=== PATIENT | male | born 1950 | race Caucasian/White ===

== ENCOUNTER 2018-10-20 17:20 | Inpatient (IN) | payer OTHER ==
[~2018-10-20] VITALS: Ht 172.7 cm; Wt 132.0 kg
[2018-10-20 17:22] VITALS: BP 128/93
--- NOTE | 2018-10-20 17:28 | NUR ---
PT AMBULATES TO BED 4
[2018-10-20] MEDS ORDERED: FUROSEMIDE 40 MG/4 ML VIAL IVP ONE (17:40)
[2018-10-20] MEDS ORDERED: ASPIRIN 81 MG TAB.CHEW PO ONE (17:40)
[2018-10-20] MEDS ORDERED: NITROGLYCERIN 2% 1 GM PKT TP ONE (17:40)
--- NOTE | 2018-10-20 17:40 | NUR ---
67 yo m bib self w/ c/o bl leg edema, 3+ pitting x 5 days with sob upon exertion. Clear speech with short phrases. Abd is firm, round, and distended. Pt reports 2/10 bl leg pain. Pt denies any sob or cp. Pt is aaox4 to person, place, time, and situation. RR are even and labored and tachypneic. Skin is warm/dry/color apprioriate for ethnicity. er md apple made aware of pt status. Pt to cardaic, bp, pulse, and pulse ox monitoring. Pt positioned to comofort. All needs met at this time. Will continue to monitor.
[2018-10-20] MEDS ORDERED: DILTIAZEM 25 MG/5 ML VIAL IVP ONE (17:50)
--- NOTE | 2018-10-20 18:11 | NUR ---
XRAY AT BEDSIDE
[2018-10-20 18:12] LABS: BASOPHILS # (AUTO) 0.1 K/uL (0.00-0.22); BASOPHILS % (AUTO) 0.6 % (0.0-2.0); EOSINOPHILS # (AUTO) 0.3 K/uL (0-0.4); EOSINOPHILS % (AUTO) 3.2 % (0.0-4.0); HEMATOCRIT 36.7 % (36-52); HEMOGLOBIN 11.8 g/dL (12.0-18.0); LYMPHOCYTES # (AUTO) 2.3 K/uL (2.0-11.5); LYMPHOCYTES % (AUTO) 23.9 % (20.5-51.1); MEAN CORPUSCULAR HEMOGLOBIN 29 pg (27-31); MEAN CORPUSCULAR HGB CONC 32 g/dL (33-37); MEAN CORPUSCULAR VOLUME 89.6 fL (80-94); MONOCYTES # (AUTO) 0.8 K/uL (0.8-1.0); NEUTROPHILS # (AUTO) 6.2 K/uL (1.8-7.7); NEUTROPHILS % (AUTO) 64.3 % (42.2-75.2); PLATELET COUNT (AUTO) 223 K/uL (140-450); RED BLOOD CELL COUNT(AUTO) 4.09 MIL/uL (4.20-6.10); RED CELL DISTRIBUTION WIDTH 15.7 % (11.6-13.7); WHITE BLOOD COUNT (AUTO) 9.6 K/uL (4.8-10.8)
[2018-10-20] MEDS ORDERED: HYDR-5092 PO (18:16)
[2018-10-20] MEDS ORDERED: [UNRECOGNIZED DRUG - CODE] PO (18:16)
[2018-10-20] MEDS ORDERED: FURO-570 PO (18:16)
[2018-10-20] MEDS ORDERED: GABA300C PO (18:16)
[2018-10-20] MEDS ORDERED: LORA-476 PO (18:16)
[2018-10-20] MEDS ORDERED: AMLO10TA PO (18:16)
[2018-10-20] MEDS ORDERED: CYCL-654 PO (18:16)
[2018-10-20] MEDS ORDERED: WARF3TAB PO (18:16)
[2018-10-20] MEDS ORDERED: ZOLP5TAB1 PO (18:16)
[2018-10-20 19:05] LABS: ALBUMIN 3.5 g/dL (3.4-5.0); CARBON DIOXIDE 29.9 mmol/L (21-32); CREATININE 1.6 mg/dL (0.7-1.3); POTASSIUM 3.9 mmol/L (3.5-5.1); TOTAL BILIRUBIN 0.5 mg/dL (0.0-1.0)
--- NOTE | 2018-10-20 19:07 | NUR ---
Pt report given to Will GRACE. Transfer of care at this time.
[2018-10-20 19:14] LABS: PROTHROMBIN TIME 17.4 secs (10.8-13.4)
[2018-10-20] MEDS ORDERED: ONDANSETRON 4 MG/2 ML VIAL IM/IVP PRN (19:55)
[2018-10-20] MEDS ORDERED: ACETAMINOPHEN 325 MG TAB PO PRN (19:55)
[2018-10-20] MEDS ORDERED: DOCUSATE SODIUM 100 MG GELCAP PO PRN (19:55)
[2018-10-20 20:22] LABS: APPEARANCE,URINE CLEAR (CLEAR); BILIRUBIN,URINE NEGATIVE (NEGATIVE); BLOOD, URINE NEGATIVE (NEGATIVE); COLOR,URINE YELLOW (YELLOW); LEUKOCYTE ESTERASE ,URINE NEGATIVE (NEGATIVE); NITRITE, URINE NEGATIVE (NEGATIVE); PH,URINE 6.5 (5.0-9.0); UGLUCOSE NEGATIVE (NEGATIVE)
[2018-10-20 20:25] LABS: BARBITURATE, URINE NEG. ng/ml (NEG <=200); BENZODIAZEPINE, URINE NEG. ng/mL (NEG <=200); CANNABINOID, URINE NEG. ng/mL (NEG <=50); COCAINE, URINE NEG. ng/mL (NEG <=300); OPIATE, URINE NEG. ng/mL (NEG <=2000); PHENCYCLIDINE SCREEN,URINE NEG. ng/mL (NEG <=25)
[2018-10-20 20:38] LABS: CHOL/HDL RATIO 3.4 (1-4.5); MAGNESIUM 2.3 mg/dL (1.8-2.4); THYROID STIMULATING HORMONE 2.19 uIU/mL (0.34-3.74)
--- NOTE | 2018-10-20 20:40 | NUR ---
RECEIVED BEDSIDE REPORT FROM ASSISTANT SIGNAL MAINTAINER DANAE. PT IS A&OX4. ON NC 2L. NO S/S OF DISTRESS. IV ON R AC 20 G SALINE LOCK. PT HAS BILATERAL LOWER EXTREMITY PITTING EDEMA. PT IS CONTINENT. RECEIVED LASIX AT ER. SKIN IS INTACT. PT USES CANE AT HOME. WILL PUT ON FALL PRECAUTION. PT WITH DISTENDED ABD. LM TODAY 10/20/18. PLAN OF CARE WAS DISCUSSED, CALL LIGHT WITHIN REACH. WILL CONTINUE TO MONITOR.
--- NOTE | 2018-10-20 20:44 | NUR ---
Patient will be admitted to care of DR HERNANDEZ. Admited to TELE VIA GURNEY WITH VSS. Will go to room 11B. Belongings list completed. Report to DEEPA GRACE.
[2018-10-20 21:00] VITALS: BP 114/81
--- NOTE | 2018-10-20 21:00 | NUR ---
COUMADIN PER PHARMACY TOMORROW. PT INR IS 1.84. HE NORMALLY TAKES DAILY IN MORNING FOR HIS A-FIB.
[2018-10-20] MEDS: NACL 0.9% 1,000 ML IV SCH (21:27)
[2018-10-20] MEDS: CARVEDILOL 3.125 MG TAB PO SCH (21:27)
--- NOTE | 2018-10-20 21:27 | NUR ---
VITAL SIGNS ARE WITHIN NORMAL LIMITS HR 92 NOW B/P 114/81. DUE MEDICATIONS ADMINISTERED. ALL NEEDS MET AT THIS TIME. WILL CONTINUE TO MONITOR.
[2018-10-20] MEDS: FUROSEMIDE 40 MG/4 ML VIAL IVP SCH (21:28)
--- NOTE | 2018-10-20 21:30 | NUR ---
PT IS DNR. DR IS AWARE. NO COPY IN CHART. PT WILL BRING IN A COPY TOMORROW.
[2018-10-20] MEDS ORDERED: CALCIUM ACETATE 667 MG TAB PO ONE (21:45)
[2018-10-20] MEDS: HYDROcodone/APAP 5/325 MG 1 TAB TAB PO PRN (22:01)
[2018-10-20] MEDS: ZOLPIDEM 5 MG TAB PO SCH (22:02)
[2018-10-20] MEDS: CALCIUM ACETATE 667 MG TAB PO SCH (22:02)
[2018-10-20] MEDS ORDERED: ZOLPIDEM 5 MG TAB ONE (22:05)
[2018-10-20] MEDS ORDERED: INFLUENZA VIRUS VACCINE QUAD 0.5 ML SYR IMVAC PRN (23:05)
[2018-10-20] MEDS ORDERED: PNEUMOCOCCAL VACCINE 23 MCG/0.5 ML VIAL IMVAC PRN (23:05)
[2018-10-21] VITALS: BP 111/45
--- NOTE | 2018-10-21 | NUR ---
VS WITHIN NORMAL LIMITS. ALL NEEDS MET AT THIS TIME. CALL LIGHT WITHIN REACH.
--- NOTE | 2018-10-21 02:30 | NUR ---
PT SLEEPING COMFORTABLY IN BED. NO S/S OF DISTRESS NOTED. CALL LIGHT WITHIN REACH.
[2018-10-21 03:28] VITALS: BP 115/88
--- NOTE | 2018-10-21 04:00 | NUR ---
VITAL SIGNS ARE WITHIN NORMAL LIMITS. ALL NEEDS MET AT THIS TIME. WILL CONTINUE TO MONITOR.
[2018-10-21 06:18] LABS: T4 (THYROXINE) 5.4 ug/dL (4.5-12.0)
[2018-10-21 06:51] LABS: BASOPHILS % (AUTO) 0.7 % (0.0-2.0); EOSINOPHILS # (AUTO) 0.4 K/uL (0-0.4); EOSINOPHILS % (AUTO) 5.5 % (0.0-4.0); HEMATOCRIT 37.8 % (36-52); LYMPHOCYTES # (AUTO) 1.6 K/uL (2.0-11.5); LYMPHOCYTES % (AUTO) 23.5 % (20.5-51.1); MEAN CORPUSCULAR HEMOGLOBIN 29 pg (27-31); MEAN CORPUSCULAR HGB CONC 32 g/dL (33-37); MEAN CORPUSCULAR VOLUME 89.9 fL (80-94); MONOCYTES # (AUTO) 0.6 K/uL (0.8-1.0); MONOCYTES % (AUTO) 9.1 % (1.7-9.3); NEUTROPHILS # (AUTO) 4.3 K/uL (1.8-7.7); NEUTROPHILS % (AUTO) 61.2 % (42.2-75.2); PLATELET COUNT (AUTO) 224 K/uL (140-450); RED CELL DISTRIBUTION WIDTH 15.5 % (11.6-13.7)
[2018-10-21 07:07] LABS: ANION GAP 4.7 (8-16); CARBON DIOXIDE 34.3 mmol/L (21-32); CREATININE 1.5 mg/dL (0.7-1.3)
[2018-10-21 07:11] LABS: MAGNESIUM 2.2 mg/dL (1.8-2.4)
[2018-10-21 07:15] LABS: PROTHROMBIN TIME 18.2 secs (10.8-13.4)
--- NOTE | 2018-10-21 07:15 | NUR ---
ENDORSED TO DAY SHIFT. PT IS IN STABLE CONDITION.
--- NOTE | 2018-10-21 07:15 | NUR ---
RECEIVED PT REPORT FROM SANITATION LEAD NURSE AT BEDSIDE. PT IS AAOX4. NO S/S OF DISTRESS NOTED ON RM AIR. IV ON R AC 20 G SALINE LOCK. PT GOING TO RESTROOM FREQUENTLY, DOESN'T WANT TO BE ATTACHED TO THE IV PUMP. WILL FLUSH THE IV CATH FREQUENTLY TO MAINTAIN PATENTCY. BILATERAL LOWER EXTREMITY PITTING EDEMA NOTED. PT IS AMBULATORY, SKIN IS INTACT. PLAN OF CARE WAS DISCUSSED, CALL LIGHT WITHIN REACH. WILL CONTINUE TO MONITOR.
[2018-10-21 08:00] VITALS: BP 123/81
--- NOTE | 2018-10-21 08:12 | NUR ---
PATIENT HAS BEEN SCREENED AND CATEGORIZED HIGH NUTRITION RISK. PATIENT WILL BE SEEN WITHIN 1-2 DAYS OF ADMISSION. 10/21/18-10/22/[address]
[2018-10-21] MEDS: CALCIUM ACETATE 667 MG TAB PO SCH ×2 (08:16→17:00)
[2018-10-21] MEDS: CYCLOBENZAPRINE 10 MG TAB PO SCH ×2 (08:16→20:21)
[2018-10-21] MEDS: HYDROcodone/APAP 5/325 MG 1 TAB TAB PO PRN ×2 (08:16→15:22)
[2018-10-21] MEDS: amLODIPine 5 MG TAB PO SCH (08:17)
[2018-10-21] MEDS: CARVEDILOL 3.125 MG TAB PO SCH ×2 (08:17→20:20)
[2018-10-21] MEDS: FUROSEMIDE 40 MG/4 ML VIAL IVP SCH ×2 (08:17→20:21)
[2018-10-21] MEDS: GABAPENTIN 300 MG CAP PO SCH ×2 (08:17→20:20)
[2018-10-21 12:00] VITALS: BP 114/84
--- NOTE | 2018-10-21 12:35 | NUR ---
HANDSTITCHING MACHINE COLLAR FELLER IS GOING TO START THE ECHOCARDIOGRAM. Addendum: 10/21/18 at 1511 by Malik Ballard RN PT IS COOPERATIVE. NO S/S OF ACUTE DISTRESS.
[2018-10-21] MEDS: NEOMYCIN/POLYMYXIN/BACITRACIN OIN 15 GM TUBE TP SCH (13:25)
--- NOTE | 2018-10-21 13:27 | NUR ---
APPLIED TRIPLE ANTIBIOTICS ON THE LEFT MID FINGER, COVERED WITH GAUZE. PT TOLERATED WELL. Addendum: 10/21/18 at 1435 by Malik Ballard RN PT STATED HE ACCIDENTALLY CUT HIMSELF WHEN COOKING AT HOME
--- NOTE | 2018-10-21 15:04 | NUR ---
KATIA LATIF CALLED THIS MORNING STATED MIGHT BE ABLE TO DO THE PULMONARY VQ SCAN THIS AFTERNOON AROUND 2PM. JUST CALLED RADIOLOGY TO FOLLOW UP. CARLA SAID KATIA LATIF IS NOT THERE YET, USUALLY SHE CALLS WHEN SHE CAN'T MAKE IT.
--- NOTE | 2018-10-21 15:48 | NUR ---
10/21/18 RD INITIAL ASSESSMENT COMPLETED PLEASE REFER TO NUTRITION ASSESSMENT UNDER CARE ACTIVITY FOR ESTIMATED NUTRITIONAL NEEDS. 1. CONTINUE CARDIAC DIET TOLERATED 2. RD TO PROVIDED NUTRITION EDUCATION ON CHF 3. RD TO FOLLOW-UP 3-5 DAYS, MODERATE RISK [address]
[2018-10-21 16:00] VITALS: BP 116/88
--- NOTE | 2018-10-21 16:35 | NUR ---
PT IS PACING IN HIS ROOM, ASKED IF PT IS ANXIOUS. PT SAID YES, PT TAKES ATIVAN AT HOME. NOTIFIED DR CHANG.
[2018-10-21] MEDS ORDERED: WARFARIN 1 MG TAB PO SCH (17:00)
--- NOTE | 2018-10-21 17:13 | NUR ---
SPOKE WITH DR CHANG, WILL GIVE PT ATIVAN THE PM DOSE NOW. DR CHANG SAID IT IS FINE.
[2018-10-21] MEDS: LORazepam 1 MG TAB PO SCH (17:32)
--- NOTE | 2018-10-21 19:20 | NUR ---
ENDORSED PT TO UPWARD BOUND DIRECTOR RN. PT IN STABLE CONDITION.
--- NOTE | 2018-10-21 19:21 | NUR ---
RECEIVED REPORT FROM DAYSHIFT NURSE AT BEDSIDE FOR CONTINUITY OF CARE. PT AAOX4. PT IV NOTED RAC 20G TKO NS. NO SOB NO S/S OF DISTRESS ON RA. BED LOWERED CALL LIGHT WITHIN REACH WILL CONTINUE TO MONITOR.
[2018-10-21] MEDS: NACL 0.9% 1,000 ML IV SCH (19:52)
[2018-10-21 20:05] VITALS: BP 115/77
[2018-10-21] MEDS: ZOLPIDEM 5 MG TAB PO SCH (20:21)
[2018-10-21] MEDS ORDERED: ZOLPIDEM 5 MG TAB PO SCH (21:00)
--- NOTE | 2018-10-21 21:00 | NUR ---
PT TOOK MEDS WELL. PT IS RESTING IN BED.
[2018-10-22] VITALS: BP 100/64
[2018-10-22] MEDS: HYDROcodone/APAP 5/325 MG 1 TAB TAB PO PRN (01:02)
[2018-10-22] MEDS: MORPHINE SULFATE 2 MG/ML SYR IVP PRN ×2 (03:01→13:24)
[2018-10-22 03:58] VITALS: BP 120/81
--- NOTE | 2018-10-22 07:14 | NUR ---
ENDORSED REPORT TO DAYSHIFT NURSE AT BEDSIDE FOR CONTINUITY OF CARE.
--- NOTE | 2018-10-22 07:15 | NUR ---
RECEIVED REPORT FROM SENIOR AUDIT MANAGER NURSE. PT IN STABLE CONDITION. RESPIRATIONS EVEN AND UNLABORED. IV INTACT AND PATENT. SAFETY MEASURES IN PLACE. BED IN LOW POSITION. HEART MONITOR IN PLACE. CALL LIGHT AT BED SIDE. WILL CONTINUE TO MONITOR.
[2018-10-22 07:19] LABS: BASOPHILS % (AUTO) 0.4 % (0.0-2.0); EOSINOPHILS # (AUTO) 0.3 K/uL (0-0.4); EOSINOPHILS % (AUTO) 3.4 % (0.0-4.0); HEMATOCRIT 38.2 % (36-52); HEMOGLOBIN 12.3 g/dL (12.0-18.0); LYMPHOCYTES # (AUTO) 1.7 K/uL (2.0-11.5); MEAN CORPUSCULAR HEMOGLOBIN 29 pg (27-31); MEAN CORPUSCULAR HGB CONC 32 g/dL (33-37); MEAN CORPUSCULAR VOLUME 89.5 fL (80-94); MONOCYTES # (AUTO) 0.8 K/uL (0.8-1.0); MONOCYTES % (AUTO) 8.6 % (1.7-9.3); NEUTROPHILS # (AUTO) 6.1 K/uL (1.8-7.7); NEUTROPHILS % (AUTO) 68.6 % (42.2-75.2); PLATELET COUNT (AUTO) 230 K/uL (140-450); RED BLOOD CELL COUNT(AUTO) 4.27 MIL/uL (4.20-6.10); RED CELL DISTRIBUTION WIDTH 15.2 % (11.6-13.7); WHITE BLOOD COUNT (AUTO) 8.9 K/uL (4.8-10.8)
[2018-10-22 07:27] LABS: ANION GAP 4.8 (8-16); CARBON DIOXIDE 31.8 mmol/L (21-32); CREATININE 1.4 mg/dL (0.7-1.3); POTASSIUM 3.6 mmol/L (3.5-5.1)
[2018-10-22 07:33] LABS: MAGNESIUM 2.3 mg/dL (1.8-2.4); PHOSPHORUS 4.6 mg/dL (2.5-4.9)
[2018-10-22 08:00] VITALS: BP 112/81
[2018-10-22] MEDS: CYCLOBENZAPRINE 10 MG TAB PO SCH ×2 (08:39→21:26)
[2018-10-22] MEDS: CARVEDILOL 3.125 MG TAB PO SCH ×2 (08:39→21:22)
[2018-10-22] MEDS: GABAPENTIN 300 MG CAP PO SCH ×2 (08:40→21:27)
[2018-10-22] MEDS: CALCIUM ACETATE 667 MG TAB PO SCH ×2 (08:40→16:53)
[2018-10-22] MEDS: amLODIPine 5 MG TAB PO SCH (08:40)
[2018-10-22] MEDS: FUROSEMIDE 40 MG/4 ML VIAL IVP SCH ×2 (08:41→21:00)
[2018-10-22] MEDS: NEOMYCIN/POLYMYXIN/BACITRACIN OIN 15 GM TUBE TP SCH ×2 (09:58→21:35)
[2018-10-22 10:05] LABS: PROTHROMBIN TIME 16.2 secs (10.8-13.4)
[2018-10-22] MEDS: LORazepam 1 MG TAB PO SCH ×2 (10:14→21:27)
--- NOTE | 2018-10-22 10:31 | NUR ---
PT SITTING IN CHAIR IN STABLE CONDITION. RESPIRATIONS EVEN AND UNLABORED. FAMILY AT BEDSIDE. WILL CONTINUE TO MONITOR.
[2018-10-22 12:00] VITALS: BP 100/65
--- NOTE | 2018-10-22 12:30 | NUR ---
PT BREATHING HEAVILY DURING POSITION CHANGES FROM BED TO CHAIR. WILL CONTINUE TO MONITOR. BED IN LOW POSITION.
--- NOTE | 2018-10-22 14:10 | NUR ---
PT LYING IN BED SLEEPING AT THIS TIME. RESPIRATIONS EVEN AND UNLABORED. WILL CONTINUE TO MONITOR.
[2018-10-22 16:00] VITALS: BP 98/55
[2018-10-22] MEDS ORDERED: WARFARIN 1 MG TAB PO SCH (17:00)
--- NOTE | 2018-10-22 17:05 | NUR ---
SHOWERING AT THIS TIME. PT TOLERATING WELL. WILL CONTINUE TO MONITOR.
--- NOTE | 2018-10-22 18:39 | NUR ---
WILL ENDORSE TO VENEER LAYER NURSE FOR CONTINUITY OF CARE. PT IN STABLE CONDITION.
--- NOTE | 2018-10-22 19:14 | NUR ---
RECEIVED ENDORSEMENT FROM AM SHIFT RN AT BEDSIDE FOR CONTINUITY OF CARE. PT A/Ox4, ABLE TO MAKE NEEDS KNOWN. PT IV NOTED RAC 20G TKO NS. NO SOB NO S/S OF DISTRESS ON RA. BED IN THE LOWEST POSITION, CALL LIGHT WITHIN REACH. WILL CONTINUE TO MONITOR.
[2018-10-22 20:00] VITALS: BP 106/71
[2018-10-22] MEDS: NACL 0.9% 1,000 ML IV SCH (20:00)
[2018-10-22] MEDS: ZOLPIDEM 5 MG TAB PO SCH (21:28)
--- NOTE | 2018-10-22 22:15 | NUR ---
FREQUENT CHECKS MADE. PATIENT ASLEEP, VISIBLE CHEST RISE AND FALL NOTED. WILL CONTINUE TO MONITOR.
[2018-10-23] VITALS: BP 102/74
--- NOTE | 2018-10-23 00:09 | NUR ---
VITALS TAKEN, NO SOB OR DISTRESS NOTED. WILL CONTINUE TO MONITOR.
[2018-10-23] MEDS: MORPHINE SULFATE 2 MG/ML SYR IVP PRN (01:25)
--- NOTE | 2018-10-23 02:10 | NUR ---
ROUNDS DONE. NO SOB OR DISTRESS NOTED.
[2018-10-23 04:00] VITALS: BP 109/70
--- NOTE | 2018-10-23 04:10 | NUR ---
VITALS TAKEN. NO SOB OR DISTRESS NOTED.
--- NOTE | 2018-10-23 07:20 | NUR ---
ENDORSED PATIENT TO AM SHIFT RN. PATIENT IN STABLE CONDITION.
--- NOTE | 2018-10-23 07:21 | NUR ---
RECEIVED REPORT FROM VOLUNTEER RECRUITER NURSE FOR CONTINUITY OF CARE. PT IN STABLE CONDITION. RESPIRATIONS EVEN AND UNLABORED. IV INTACT AND PATENT. SAFETY MEASURES IN PLACE. BED IN LOW POSITION. CALL LIGHT AT BEDSIDE. WILL CONTINUE TO MONITOR.
[2018-10-23 07:47] LABS: BASOPHILS % (AUTO) 0.4 % (0.0-2.0); EOSINOPHILS # (AUTO) 0.3 K/uL (0-0.4); EOSINOPHILS % (AUTO) 3.5 % (0.0-4.0); HEMATOCRIT 40.2 % (36-52); HEMOGLOBIN 12.8 g/dL (12.0-18.0); LYMPHOCYTES # (AUTO) 1.6 K/uL (2.0-11.5); LYMPHOCYTES % (AUTO) 22.1 % (20.5-51.1); MEAN CORPUSCULAR HEMOGLOBIN 29 pg (27-31); MEAN CORPUSCULAR HGB CONC 32 g/dL (33-37); MONOCYTES # (AUTO) 0.6 K/uL (0.8-1.0); MONOCYTES % (AUTO) 8.8 % (1.7-9.3); NEUTROPHILS # (AUTO) 4.8 K/uL (1.8-7.7); NEUTROPHILS % (AUTO) 65.2 % (42.2-75.2); PLATELET COUNT (AUTO) 226 K/uL (140-450); RED BLOOD CELL COUNT(AUTO) 4.47 MIL/uL (4.20-6.10); RED CELL DISTRIBUTION WIDTH 15.3 % (11.6-13.7); WHITE BLOOD COUNT (AUTO) 7.4 K/uL (4.8-10.8)
[2018-10-23 08:00] VITALS: BP 117/85
[2018-10-23] MEDS ORDERED: WARF3TAB PO (08:06)
[2018-10-23 08:14] LABS: ANION GAP 6.4 (8-16); CARBON DIOXIDE 32.8 mmol/L (21-32); CREATININE 1.3 mg/dL (0.7-1.3); POTASSIUM 4.2 mmol/L (3.5-5.1)
[2018-10-23 08:16] LABS: MAGNESIUM 2.4 mg/dL (1.8-2.4); PHOSPHORUS 3.9 mg/dL (2.5-4.9)
[2018-10-23 08:20] LABS: PROTHROMBIN TIME 15.1 secs (10.8-13.4)
[2018-10-23] MEDS: CALCIUM ACETATE 667 MG TAB PO SCH (08:50)
[2018-10-23] MEDS: GABAPENTIN 300 MG CAP PO SCH (08:50)
[2018-10-23] MEDS: LORazepam 1 MG TAB PO SCH (08:51)
[2018-10-23] MEDS: HYDROcodone/APAP 5/325 MG 1 TAB TAB PO PRN (08:51)
[2018-10-23] MEDS: CARVEDILOL 3.125 MG TAB PO SCH (08:52)
[2018-10-23] MEDS: amLODIPine 5 MG TAB PO SCH (08:52)
[2018-10-23] MEDS: CYCLOBENZAPRINE 10 MG TAB PO SCH (08:52)
--- NOTE | 2018-10-23 09:10 | NUR ---
GAVE ORDERED DUE MEDICATIONS AT THIS TIME. PT TOLERATED WELL. WILL CONTINUE TO MONITOR.
[2018-10-23] MEDS: NEOMYCIN/POLYMYXIN/BACITRACIN OIN 15 GM TUBE TP SCH (09:50)
[2018-10-23] MEDS: FUROSEMIDE 40 MG/4 ML VIAL IVP SCH (09:50)
[2018-10-23] MEDS ORDERED: WARFARIN 5 MG TAB PO SCH (11:00)
--- NOTE | 2018-10-23 11:30 | NUR ---
PT SITTING ON SIDE OF BED IN STABLE CONDITION. BED IN LOW POSITION. CALL LIGHT AT BEDSIDE. WILL CONTINUE TO MONITOR.
[2018-10-23 12:00] VITALS: BP 117/75
--- NOTE | 2018-10-23 13:20 | NUR ---
GAVE DISCHARGE INSTRUCTIONS AND PHARMACY PRESCRIPTION. ADVISED PT TO SEARCH ENGINE MARKETING MANAGER MEDICATIONS AT [facility] IN [place], PHARMACY OF PT'S CHOICE. PT VERBALIZED UNDERSTANDING OF INSTRUCTIONS. IV REMOVED, LUMEN INTACT. ID BAND REMOVED. PT WHEELED TO LOBBY WITH ALL BELONGINGS IN WHEELCHAIR WHERE FAMILY WERE WAITING WITH VEHICLE. PT IN STABLE CONDITION.
--- NOTE | 2018-10-24 14:53 | NUR ---
CALLED DR. MARYAN ORO'S OFFICE, AND MADE A FOLLOW UP APPOINTMENT FOR WednesdayOct AT 3:30P.M,. [address]ESS [phone] [facility] [address] [facility] [id number]. I CALLED THE PATIENT AND INFORMED HIM.
== END 2018-10-23 13:20 | disposition home or self-care (01) | DRG 682 ==
LOC: MED 17:20 → MTU 19:59
PROVIDERS: ADMIT General Practice; ATTEND General Practice
PROC: 3E02340 Introduction of Influenza Vaccine into Muscle, Percutaneous Approach (ICD-10-PCS; principal; 2018-10-23)
PROC: 3E0234Z Introduction of Serum, Toxoid and Vaccine into Muscle, Percutaneous Approach (ICD-10-PCS; 2018-10-23)
DX: N17.0 Acute kidney failure with tubular necrosis (principal); I50.43 Acute on chronic combined systolic (congestive) and diastolic (congestive) heart failure; R65.10 Systemic inflammatory response syndrome (SIRS) of non-infectious origin without acute organ dysfunction; Z68.41 Body mass index [BMI] 40.0-44.9, adult; I42.9 Cardiomyopathy, unspecified; I11.0 Hypertensive heart disease with heart failure; K80.20 Calculus of gallbladder without cholecystitis without obstruction; F41.9 Anxiety disorder, unspecified; I48.91 Unspecified atrial fibrillation; E66.01 Morbid (severe) obesity due to excess calories; G89.29 Other chronic pain; E83.39 Other disorders of phosphorus metabolism; F10.10 Alcohol abuse, uncomplicated; M19.90 Unspecified osteoarthritis, unspecified site; I73.9 Peripheral vascular disease, unspecified; R74.0 Nonspecific elevation of levels of transaminase and lactic acid dehydrogenase [LDH]; G62.9 Polyneuropathy, unspecified; F19.10 Other psychoactive substance abuse, uncomplicated; Z23 Encounter for immunization; Z87.891 Personal history of nicotine dependence; Z83.49 Family history of other endocrine, nutritional and metabolic diseases; Z82.49 Family history of ischemic heart disease and other diseases of the circulatory system
CPT/HCPCS: 36415; 71045; 76700; 78582; 80048; 80053; 80305; 81003; 82150; 83036; 83605; 83690; 83735; 83880; 84100; 84436; 84443; 84484; 85025; 85610; 85730; 87081; 90658; 90732; 93005; 96374; 96375; 99285; A9540; J1644; J1940; J2270; J3490; J7030; Q0092